=== PATIENT | male | born 1955 | race Caucasian/White ===

== ENCOUNTER 2020-08-23 06:28 | Emergency (ER) | payer MEDICARE ==
[~2020-08-23] VITALS: Ht 172.7 cm; Wt 77.5 kg
[2020-08-23 07:09] LABS: CLARITY,URINE CLEAR (Clear); COLOR,URINE YELLOW (Yellow); GLUCOSE, URINE NEGATIVE (Neg); KETONES,URINE 15 mg/dl (Neg); LEUKOCYTE ESTERASE ,URINE NEGATIVE (Neg); NITRITES, URINE NEGATIVE (Neg); OCCULT BLOOD,URINE NEGATIVE (Neg); PH,URINE 5.5 (4.8-8.0); PROTEIN,URINE 100 mg/dl (Neg); UROBILINOGEN,URINE 0.2 E.U/dL (0.2-1.0)
[2020-08-23 07:10] LABS: UA COLLECTION TYPE CLN CATCH MIDSTREAM
[2020-08-23 07:16] LABS: URINE AMPHETAMINE SCREEN NEGATIVE (Neg); URINE BARBITUATE SCREEN NEGATIVE (Neg); URINE BENZODIAZEPINES SCREEN NEGATIVE (Neg); URINE CANNABINOID SCREEN NEGATIVE (Neg); URINE COCAINE SCREEN NEGATIVE (Neg); URINE METHADONE SCREEN NEGATIVE (Neg); URINE OPIATE SCREEN NEGATIVE (Neg); URINE PHENCYCLIDINE SCREEN NEGATIVE (Neg)
[2020-08-23 07:20] LABS: BACTERIA,URINE NONE SEEN /HPF (Neg); RBC,URINE NONE SEEN /HPF (0-2); SQUAMOUS EPITHELIAL CELL,UR FEW /LPF (FEW); WBC,URINE 0-4 /HPF (0-4)
[2020-08-23 07:21] LABS: WAXY CASTS,URINE 0-3 /LPF (NEGATIVE)
[2020-08-23 07:22] LABS: FINE GRANULAR CAST 0-3 /LPF (NEGATIVE)
--- NOTE | 2020-08-23 07:40 | NUR ---
forest technology professor at bedside for lab draw per MD order.
--- NOTE | 2020-08-23 07:52 | NUR ---
spoke to pt sister Juliana @ [phone], she is unable to come and get pt he is part of [employer] in [place], briefcase sewer is Pj Trevizo, at [facility] [phone] or [phone] called him, too early, pt has really good program up in [place], he is not sire why he is here, has come here before to commit suicide, he has an extensive hx of mental health issues, he is schizoaffective disorder, bipolar, and multiple suicide attempts, his program, has provided housing, after he has been inpatient, and he fails in 5 days due to etoh and lack of meds, he urinates on the bed, floor, etc, he is homeless now, his plan for suicide is to light himself on fire, , jump off a bridge or drown himself, he is responding to external stimuli and talking in "tongues" voices to harm himself and others and say "terrible things"
--- NOTE | 2020-08-23 08:00 | NUR ---
pt eating breakfast, calm, no needs
[2020-08-23 08:06] LABS: BASOPHILS % (AUTO) 0.4 % (0-1); EOSINOPHILS # (AUTO) 0.1 X10'3 (0-0.9); EOSINOPHILS % (AUTO) 1.6 % (0-6); HEMATOCRIT 43.8 % (42.0-52.0); HEMOGLOBIN 14.6 g/dl (14.0-17.9); LYMPHOCYTES # (AUTO) 0.9 X10'3 (1.1-4.8); LYMPHOCYTES % (AUTO) 12.9 % (21-51); MEAN CORPUSCULAR HEMOGLOBIN 31.5 PG (27.0-31.0); MEAN CORPUSCULAR HGB CONC 33.2 g/dL (33.0-36.5); MEAN CORPUSCULAR VOLUME 94.8 FL (78-98); MEAN PLATELET VOLUME 7.6 FL (7.4-10.4); MONOCYTES # (AUTO) 0.8 X10'3 (0-0.9); MONOCYTES % (AUTO) 11.8 % (2-12); NEUTROPHILS # (AUTO) 5.2 X10'3 (1.8-7.7); NEUTROPHILS % (AUTO) 73.3 % (42-75); PLATELET COUNT 252 X10'3 (140-440); RED BLOOD COUNT 4.62 X10'6 (4.70-6.10); RED CELL DISTRIBUTION WIDTH 15.4 % (11.5-14.5); WHITE BLOOD COUNT 7.1 X10'3 (4.5-11.0)
[2020-08-23 08:21] LABS: ALANINE AMINOTRANSFERASE 29 U/L (12-78); ALBUMIN 4.2 G/DL (3.4-5.0); ALKALINE PHOSPHATASE 85 IU/L (46-116); ANION GAP 13 (8-16); ASPARTATE AMINO TRANSFERASE 28 U/L (10-37); BILIRUBIN,TOTAL 0.6 MG/DL (0.1-1.0); BLOOD UREA NITROGEN 16 MG/DL (7-18); BUN/CREATININE RATIO 16.3 (5.4-32.0); CALCIUM 9.4 MG/DL (8.5-10.1); CHLORIDE 100 MMOL/L (99-107); CREATININE 0.98 MG/DL (0.60-1.10); GLUCOSE 77 MG/DL (70-104); POTASSIUM 4.1 MMOL/L (3.5-5.1); SODIUM 138 MMOL/L (135-145); TOTAL CARBON DIOXIDE 24.6 MMOL/L (24-32); TOTAL PROTEIN 8.4 G/DL (6.4-8.2); eGFR 78 ML/MIN
[2020-08-23 08:30] LABS: ETHANOL < 0.010 GM/DL (0.0-0.010)
--- NOTE | 2020-08-23 08:55 | NUR ---
PACKET FAXED TO [facility]
--- NOTE | 2020-08-23 09:00 | NUR ---
pt is asleep, regular breathing observed, no needs at this time
--- NOTE | 2020-08-23 10:16 | NUR ---
pt is asleep, no needs at this time
--- NOTE | 2020-08-23 11:15 | NUR ---
pt ambulated to the bathroom, no other needs at this time
[2020-08-23] MEDS ORDERED: OLAN5TAB5 PO ×2 (11:32)
[2020-08-23] MEDS ORDERED: GABA600T13 PO ×2 (11:34)
[2020-08-23] MEDS ORDERED: OLANZapine 5mg rapidly disint. tablet PO SCH ×2 (11:52→21:00)
[2020-08-23] MEDS ORDERED: gabapentin 300mg capsule PO SCH ×3 (11:53→21:00)
--- NOTE | 2020-08-23 12:10 | NUR ---
pt has been given medications, he was given warm blanket, he remeians calm, no needs at this time
--- NOTE | 2020-08-23 14:14 | NUR ---
PT TRANSFERED FROM ER BED 9 TO OVERFLOW BED 23.
--- NOTE | 2020-08-23 14:26 | NUR ---
Pt on phone with sister. He appears to be comprehend what she is saying based on his heard responses.
--- NOTE | 2020-08-23 19:44 | NUR ---
The patient has beenr resting on his bed after eating 100% of his dinner. He was asked how he was doing he stated, "I wish I wasn't hearing voices" He denies that the voices are telling him to harm himself. He declined to state what the voices were saying but stated, "They are not nice people" His affect is flat.
--- NOTE | 2020-08-23 21:01 | NUR ---
The patient has been accepted at [facility] pending negative covid test. The patient was made aware and was very cooperative with the collection of the swab.
[2020-08-23 22:24] VITALS: BP 127/71
== END 2020-08-23 22:32 ==
LOC: ER 06:30
DX: R45.851 Suicidal ideations (principal); Z20.822 Contact with and (suspected) exposure to COVID-19; F31.9 Bipolar disorder, unspecified; F20.9 Schizophrenia, unspecified; Z79.899 Other long term (current) drug therapy; Z56.0 Unemployment, unspecified
CPT/HCPCS: 36415; 80053; 80305; 80320; 81001; 84443; 85025; 87426; 99285